=== PATIENT | female | born 2000 | race Caucasian/White ===

== ENCOUNTER 2021-09-23 10:47 | Emergency (ER) | payer OTHER ==
[~2021-09-23] VITALS: Ht 165.1 cm; Wt 72.4 kg
[2021-09-23 10:50] VITALS: BP 133/81
[2021-09-23] MEDS ORDERED: PRED20TA PO (11:24)
--- NOTE | 2021-09-23 11:24 | PHYS DOC ---
Past History Past Surgical History: No Surgical History Alcohol Use: None General Adult EDM: Chief Complaint: FACE PROBLEM HPI: HPI: 21-year-old female presents with right-sided facial droop and weakness. The patient had an irritated eye all day yesterday. Yesterday evening she started notice that her right mouth was not the same as the left. She had some issues drinking and spitting. When she woke up this morning she realized that she could not blink completely and that she had facial droop. She came in for evaluation. She has no other symptoms at this time. Review of Systems: Review of Systems: Constitutional: Denies fever or chills Eyes: Denies change in visual acuity HENT: Right-sided facial droop Respiratory: Denies cough or shortness of breath Cardiovascular: Denies chest pain or edema GI: Denies abdominal pain, nausea, vomiting, bloody stools or diarrhea : Denies dysuria Musculoskeletal: Denies back pain or joint pain Integument: Denies rash Neurologic: Denies headache, focal weakness or sensory changes Endocrine: Denies polyuria or polydipsia Lymphatic: Denies swollen glands Psychiatric: Denies depression or anxiety Current Medications: Current Meds: Current Medications Medications (Trade) Dose Ordered Sig/Haley Start Time Stop Time Status Last Admin Dose Admin Prednisone (Prednisone) 60 mg 1X ONCE 09/23/21 11:30 09/23/21 11:31 UNV Physical Exam: PE: Constitutional: Well developed, well nourished, no acute distress, non-toxic appearance. [] HENT: Normocephalic, atraumatic, bilateral external ears normal, oropharynx moist, no oral exudates, nose normal.[] Eyes: PERRLA, EOMI, conjunctiva normal, no discharge. [] Neck: Normal range of motion, no tenderness, supple, no stridor. [] Cardiovascular:Heart rate regular rhythm, no murmur [] Lungs & Thorax: Bilateral breath sounds clear to auscultation [] Abdomen: Bowel sounds normal, soft, no tenderness, no masses, no pulsatile masses. [] Skin: Warm, dry, no erythema, no rash. [] Back: No tenderness, no CVA tenderness. [] Extremities: No tenderness, no cyanosis, no clubbing, ROM intact, no edema. [] Neurologic: Right-sided facial droop of the mouth, flattened nasolabial fold, decreased ability to raise eyebrow, decreased ability to close eyelid. Alert and oriented X 3, normal motor function, normal sensory function. [] Psychologic: Affect normal, judgement normal, mood normal. [] Current Patient Data: Vital Signs: Vital Signs Date Time Temp Pulse Resp B/P (MAP) Pulse Ox O2 Delivery O2 Flow Rate FiO2 09/23/21 10:50 98.3 92 20 133/81 (98) 98 Room Air EKG: EKG: [] Radiology/Procedures: Radiology/Procedures: [] Heart Score: C/O Chest Pain: N/A Risk Factors: Risk Factors: DM, Current or recent (<one month) smoker, HTN, HLP, family history of CAD, obesity. Risk Scores: Score 0 - 3: 2.5% MACE over next 6 weeks - Discharge Home Score 4 - 6: 20.3% MACE over next 6 weeks - Admit for Clinical Observation Score 7 - 10: 72.7% MACE over next 6 weeks - Early Invasive Strategies Course & Med Decision Making: Course & Med Decision Making Pertinent Labs and Imaging studies reviewed. (See chart for details) The patient's preliminary NIH stroke scale score is a 1 for facial droop. Her exam is consistent with Hudson's palsy. I will treat her with 60 mg of prednisone in the emergency room followed by 6 more days for home. I have provided her patient education and we discussed at length management of her eye if her eyelid does not fully close. She has family at home that will help her monitor this. She is stable for discharge at this time. [] Juan Antonio Disclaimer: Juan Antonio Disclaimer: This electronic medical record was generated, in whole or in part, using a voice recognition dictation system. Departure Departure: Impression: Primary Impression: Hudson's palsy Disposition: HOME / SELF CARE / HOMELESS Condition: STABLE Referrals: PCP,UNKNOWN (PCP) Patient Instructions: Hudson's Palsy Scripts Prednisone (PREDNISONE) 20 Mg Tablet 3 TAB PO DAILY for hudson's palsy for 6 Days, #18 TAB Prov: JENARO MADERA DO 09/23/21 JENARO MADERA DO Sep 23, 2021 11:24
[2021-09-23] MEDS ORDERED: predniSONE 20 MG TABLET PO ONE (11:30)
== END 2021-09-23 11:27 | disposition home or self-care (01) ==
LOC: ER 10:47
DX: G51.0 Bell's palsy (principal); R53.1 Weakness
CPT/HCPCS: 99283; J7512